=== PATIENT | female | born 1985 | race Caucasian/White ===

== ENCOUNTER 2018-08-08 18:39 | Emergency (ER) | payer BC ==
[~2018-08-08] VITALS: Ht 154.9 cm; Wt 54.4 kg
[2018-08-08] MEDS ORDERED: NKM (18:46)
[2018-08-08 18:50] VITALS: BP 121/80
[2018-08-08] MEDS ORDERED: Sodium Chloride 500ML 500 ML IV ONE (18:57)
[2018-08-08] MEDS ORDERED: Metoclopramide 10mg/2ml Inj IVP ONE (19:00)
[2018-08-08] MEDS ORDERED: Ketorolac 30mg Inj IV ONE (19:00)
[2018-08-08] MEDS ORDERED: DiphenhydrAMINE 50mg/ml Inj IVP ONE (19:00)
[2018-08-08 20:06] LABS: HEMATOCRIT 22.6 % (37.0-47.0); HEMOGLOBIN 7.3 G/DL (12.0-16.0); MEAN CORPUSCULAR VOLUME 93 FL (80-99); PLATELET COUNT 442 K/UL (150-450); RED BLOOD COUNT 2.43 M/UL (4.20-5.40); RED CELL DISTRIBUTION WIDTH 14.4 % (11.6-14.8); WHITE BLOOD COUNT 7.2 K/UL (4.8-10.8)
[2018-08-08 20:09] LABS: BASOPHILS % (AUTO) 1.2 % (0.0-2.0); EOSINOPHILS % (AUTO) 0.2 % (0.0-3.0); LYMPHOCYTES % (AUTO) 24.1 % (20.0-45.0); MONOCYTES % (AUTO) 8.6 % (1.0-10.0); NEUTROPHILS % (AUTO) 65.9 % (45.0-75.0)
[2018-08-08 20:11] LABS: ANION GAP 10 mmol/L (5-15); BLOOD UREA NITROGEN 7 mg/dL (7-18); CALCIUM 8.9 MG/DL (8.5-10.1); CARBON DIOXIDE 28 MMOL/L (21-32); CHLORIDE 107 MMOL/L (98-107); CREATININE 0.9 MG/DL (0.55-1.30); INR 0.9 (0.9-1.1); POTASSIUM 4.1 MMOL/L (3.5-5.1); SODIUM 145 MMOL/L (136-145)
[2018-08-08 20:15] LABS: ALANINE AMINOTRANSFERASE 23 U/L (12-78); ALBUMIN 3.6 G/DL (3.4-5.0); ALKALINE PHOSPHATASE 36 U/L (46-116); ASPARTATE AMINO TRANSFERASE 13 U/L (15-37); BILIRUBIN,TOTAL 0.2 MG/DL (0.2-1.0); CREATINE KINASE 72 U/L (26-308)
[2018-08-08 20:41] LABS: APPEARANCE,URINE CLEAR; BILIRUBIN, URINE NEGATIVE (NEGATIVE); COLOR,URINE PALE YELLOW; GLUCOSE, URINE (UA) NEGATIVE (NEGATIVE); KETONES,URINE NEGATIVE (NEGATIVE); LEUKOCYTE ESTERASE ,URINE NEGATIVE (NEGATIVE); NITRITE,URINE NEGATIVE (NEGATIVE); PH,URINE 7 (4.5-8.0); PROTEIN,URINE NEGATIVE (NEGATIVE); UROBILINOGEN,URINE NORMAL MG/DL (0.0-1.0)
--- NOTE | 2018-08-08 21:46 | Emergency Room Report ---
History of Present Illness General Chief Complaint: Headache Source: Patient, PMD Present Illness HPI Patient presents with 1 week of severe headache and neck pain. She woke up with this headache. It is severe, globally in head and radiates to neck with pain when she moves her head. More frontally, throbbing and feels like some rattling when she moves her head. Rated 8/10. She's had headaches similar to this but not as severe. No sudden onset. She had tried taking ibuprofen at the onset and had severe vaginal bleeding. There was "a lot" of blood loss. She was seen by her [employer] and told to double her control. This has led to cessation of the bleeding. No fevers, URI, chills., though she has felt cold. A friend who is an MD in [place] suggested cause of hemorrhage was ibuprofen. Also suggested that there was a problem in her brain. The bleed occurred 2 weeks ago. She has been on BCP since age 11. No recent change in dosing, though not sure of recent Rx. No dysuria. No vaginal d/c. She states she cannot be and was not when the hemorrhage occurred. No dizziness, palpitations, chest pain, calf pain, edema, NVD. No photophobia or aura. No blood thinners (aside from ibuprofen). No weakness or numbness. No major medical problems. Allergies: Coded Allergies: No Known Allergies (Unverified , 08/08/18) Patient History Past Medical History: see triage record Social History: Denies: smoking, alcohol use Social History Narrative company accountant Now: No Reviewed Nursing Documentation: PMH: Agreed; PSxH: Agreed Nursing Documentation-PM Past Medical History: No Stated History Review of Systems All Other Systems: negative except mentioned in HPI Physical Exam Vital Signs Date Time Temp Pulse Resp B/P (MAP) Pulse Ox O2 Delivery O2 Flow Rate FiO2 08/08/18 18:44 99.0 93 16 121/80 100 Room Air Sp02 EP Interpretation: reviewed, normal General Appearance: well appearing, no apparent distress, GCS 15 Head: normocephalic, atraumatic Eyes: bilateral eye PERRL, bilateral eye conjunctivae pale ENT: moist mucus membranes Neck: no meningismus, tender - with any ROM even with raising shouders Respiratory: lungs clear, normal breath sounds Cardiovascular #1: regular rate, rhythm Cardiovascular #2: 2+ radial (R) Gastrointestinal: normal inspection, normal bowel sounds, non tender, no mass, non-distended Genitourinary: no CVA tenderness Musculoskeletal: back normal, gait/station normal, normal range of motion Neurologic: alert, oriented x3, radiosonde operator III-XII nml as tested, motor strength/tone normal, DTRs symmetric, sensory intact, cerebellar normal, normal gait, speech normal Psychiatric: mood/affect normal Skin: normal inspection, warm/dry Medical Decision Making Diagnostic Impression: Primary Impression: Headache Qualified Codes: R51 - Headache Additional Impressions: Anemia Qualified Codes: D50.8 - Other iron deficiency anemias History of heavy vaginal bleeding ER Course Patient presents with BRIZUELA on BCP post significant vaginal hemorrhage. DDx; bleed , anemia, migraine, tension, pituitary tumor amongst others. Concern as on BCPs. Not focal neurological exam. Evaluation with CT, labs. Treatment with IV hydration, toradol, reglan and benadryl. Repeat neurologic exam. Vaginal hemorrhage has resolved. CT normal. CBC with significant anemia. Sed rate elevated. Pain resolved completely. Discussed need for treatment of anemia and suggested transfusion. With discussion of risks and benefits, patient declines transfusion (knowing that BRIZUELA might persist). Discussed with PMD who recommends follow up tomorrow for iron infusion. Etiology of vaginal hemorrhage unclear. Patient stable for outpatient observation and treatment. Laboratory Tests Test 08/08/18 19:21 08/08/18 20:30 White Blood Count 7.2 K/UL (4.8-10.8) Red Blood Count 2.43 M/UL (4.20-5.40) L Hemoglobin 7.3 G/DL (12.0-16.0) L Hematocrit 22.6 % (37.0-47.0) L Mean Corpuscular Volume 93 FL (80-99) Mean Corpuscular Hemoglobin 30.2 PG (27.0-31.0) Mean Corpuscular Hemoglobin Concent 32.5 G/DL (32.0-36.0) Red Cell Distribution Width 14.4 % (11.6-14.8) Platelet Count 442 K/UL (150-450) Mean Platelet Volume 6.1 FL (6.5-10.1) L Neutrophils (%) (Auto) 65.9 % (45.0-75.0) Lymphocytes (%) (Auto) 24.1 % (20.0-45.0) Monocytes (%) (Auto) 8.6 % (1.0-10.0) Eosinophils (%) (Auto) 0.2 % (0.0-3.0) Basophils (%) (Auto) 1.2 % (0.0-2.0) Erythrocyte Sedimentation Rate 53 MM/HR (0-20) H Prothrombin Time 10.0 SEC (9.30-11.50) Prothrombin Time INR 0.9 (0.9-1.1) PTT 21 SEC (23-33) L Sodium Level 145 MMOL/L (136-145) Potassium Level 4.1 MMOL/L (3.5-5.1) Chloride Level 107 MMOL/L (98-107) Carbon Dioxide Level 28 MMOL/L (21-32) Anion Gap 10 mmol/L (5-15) Blood Urea Nitrogen 7 mg/dL (7-18) Creatinine 0.9 MG/DL (0.55-1.30) Estimate Glomerular Filtration Rate > 60 mL/min (>60) Glucose Level 118 MG/DL (74-106) H Calcium Level 8.9 MG/DL (8.5-10.1) Total Bilirubin 0.2 MG/DL (0.2-1.0) Aspartate Amino Transferase (AST) 13 U/L (15-37) L Alanine Aminotransferase (ALT) 23 U/L (12-78) Alkaline Phosphatase 36 U/L (46-116) L Total Creatine Kinase 72 U/L (26-308) Total Protein 7.1 G/DL (6.4-8.2) Albumin 3.6 G/DL (3.4-5.0) Globulin 3.5 g/dL Albumin/Globulin Ratio 1.0 (1.0-2.7) Urine Color Pale yellow Urine Appearance Clear Urine pH 7 (4.5-8.0) Urine Specific [place] 1.010 (1.005-1.035) Urine Protein Negative (NEGATIVE) Urine Glucose (UA) Negative (NEGATIVE) Urine Ketones Negative (NEGATIVE) Urine Blood 2+ (NEGATIVE) H Urine Nitrite Negative (NEGATIVE) Urine Bilirubin Negative (NEGATIVE) Urine Urobilinogen Normal MG/DL (0.0-1.0) Urine Leukocyte Esterase Negative (NEGATIVE) Urine RBC 0-2 /HPF (0 - 2) Urine WBC 0-2 /HPF (0 - 2) Urine Squamous Epithelial Cells Few /LPF (NONE/OCC) Urine Bacteria Occasional /HPF (NONE) Urine HCG, Qualitative Negative (NEGATIVE) CT/MRI/US Diagnostic Results CT/MRI/US Diagnostic Results : Imaging Test Ordered: head Impression normal Last Vital Signs Date Time Temp Pulse Resp B/P (MAP) Pulse Ox O2 Delivery O2 Flow Rate FiO2 08/09/18 02:32 89.9 86 16 125/83 100 Room Air Status: improved Disposition: HOME, SELF-CARE Condition: Improved Scripts Methocarbamol* (ROBAXIN*) 500 Mg Tablet 500 MG PO TID, #10 TAB 0 Refills Prov: August Lombardi MD 08/08/18 Acetaminophen (Tylenol) 325 Mg Tablet 650 MG ORAL Q6H PRN for Prn Pain/Headache/Temp > 101, #20 TAB 0 Refills Prov: August Lombardi MD 08/08/18 Pnv Cmb#21/Iron/Folic Acid ( COMPLETE CAPLET) 1 Each Tablet 1 EACH PO DAILY, #30 TAB Prov: August Lombardi MD 08/08/18 Referrals: NOT CHOSEN IPA/,REFERRING (PCP) August Lombardi MD Aug 08, 2018 21:46
[2018-08-08] MEDS ORDERED: ROBAXIN500 MG PO (21:49)
[2018-08-08] MEDS ORDERED: TYLENOL325 MG ORAL (21:49)
[2018-08-08] MEDS ORDERED: PRENATAL COMPL1 EAC1 PO (21:49)
[2018-08-09 02:32] VITALS: BP 125/83
--- NOTE | 2018-08-09 11:36 | Diagnostic Imaging Report ---
Indications: Headache x2 weeks Technique: Spiral acquisitions obtained through the brain. Angled axial and coronal 5 x 5 mm slices were reconstructed. Total dose length product 1340.9 mGycm. CTDI vol(s) 70.38 mGy. Dose reduction achieved using automated exposure control Comparison: None. Findings: No acute intracranial hemorrhage nor edema, mass effect, nor midline shift. Normal carbone-white differentiation. Normal size ventricles and extra-axial CSF spaces. There is a patent cavum septum pellucidum-normal anatomic variant. Visualized orbits and sinuses are unremarkable. The calvarium is intact Impression: Negative This agrees with the preliminary interpretation provided overnight by [facility] teleradiology service. The CT scanner at [facility] is accredited by the [employer] and the scans are performed using protocols designed to limit radiation exposure to as low as reasonably achievable to attain images of sufficient resolution adequate for diagnostic evaluation.
== END 2018-08-08 21:56 | disposition home or self-care (01) ==
LOC: EMR 19:19
DX: R51 Headache (principal); D50.8 Other iron deficiency anemias; N93.8 Other specified abnormal uterine and vaginal bleeding; M54.2 Cervicalgia
CPT/HCPCS: 36415; 70450; 80053; 81003; 81025; 82550; 85025; 85610; 85651; 85730; 96361; 96374; 96375; 99284; J1200; J1885; J2765